=== PATIENT | male | born 1975 | race Caucasian/White ===

== ENCOUNTER 2016-07-08 04:15 | Inpatient (IN) | payer OTHER ==
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
--- NOTE | ~2016-07-08 | CR150 ---
[facility] A Service of [facility] RADIOLOGY TEXT RESULTS PATIENT: KENTON OCHOA LOCATION: [place] [id number] : [birth year] UNIT #: [id number] AGE: [address]: Connie Swann MD SEX: M ORDER DR: [id number] [facility] [address] [facility]. [place], [place] [address] [id number] I MR#: [id number] Acc #: [id number] NAME: KENTON OCHOA : 1975 SEX: M STUDY DATE/TIME: 07/08/2016 21:03 UNIT: [facility] ROOM: [facility] STUDY DESCRIPTION: CR Hip Min 2 Views Lt Attending Physician: Connie Swann M.D. Ordering Physician: Connie Swann M.D. Primary Care Physician: No Primary Care Physician MEDICAL IMAGING REPORT This report is preliminary unless electronic signature is present EXAM Left hip, 07/08/2016 HISTORY A 41-year-old male in the ED complaining of 2-year history of left hip pain. He states he recently injured his left hip. He was seen in the ED at [facility] yesterday after a reported seizure and fall. TECHNIQUE AP radiographs of the pelvis and hips with the lateral left hip image. FINDINGS The examination is negative. No acute or chronic fracture deformity, dislocation, arthropathy or other osseous abnormality. IMPRESSION Negative left hip. Dictated by... Kj Falcon M.D. THIS IS AN ELECTRONICALLY VERIFIED REPORT Kj Falcon M.D. at 07/09/2016 9:53 PM MARCIN/karen TD: 07/09/2016 06:23 JOB #: [id number] MEDICAL IMAGING REPORT Page 1 of 1 COPY
--- NOTE | ~2016-07-08 | DS ---
Unit #: [id number] #: [id number] Patient: KENTON OCHOA [id number] [address] [address] [id number] I MR#: [id number] NAME: KENTON OCHOA ROOM: 569 Age: 41 Sex: M Admission Date: 07/08/2016 : 1975 Discharge Date: 07/11/2016 Attending Physician: Connie Swann M.D. DISCHARGE SUMMARY ADDENDUM The patient is evaluated for inpatient alcohol withdrawal per [facility], but he is refusing. Given he is clinically stable, I am going to discharge home on a tapering dose of Librium 25 mg 2 tablets p.o. t.i.d. for 2 days, then 2 tablets p.o. b.i.d. for 2 days, then one tablet p.o. b.i.d. for 2 days, and one tablet daily for 2 days. Dictated by... Daryl Paez/brandy TD: 07/11/2016 08:21 JOB #: [id number] DISCHARGE SUMMARY Page 1 of 1 X Connie Swann MD X DISCHARGE SUMMARY
--- NOTE | ~2016-07-08 | DS ---
Unit #: [id number] #: [id number] Patient: KENTON STALLINGS [id number] [address] [place], [place] [address] [id number] I MR#: [id number] NAME: KENTON STALLINGS ROOM: 569 Age: 41 Sex: M Admission Date: 07/08/2016 : 1975 Discharge Date: Attending Physician: Connie Swann M.D. DISCHARGE SUMMARY PRIMARY CARE PHYSICIAN None. PRINCIPAL DIAGNOSES 1. Seizure, question alcohol withdrawal versus nonepileptic. 2. Acute delirium tremens. 3. Chronic alcohol abuse. 4. Polysubstance abuse including tobacco, alcohol, and amphetamines. 5. Alcohol-induced thrombocytopenia, improving. 6. Hypomagnesemia. 7. Hypokalemia. 8. Hepatitis C. 9. Left iliotibial band syndrome. 10. Tobaccoism. PROCEDURES X-ray of the left hip on 07/08/2016, which was normal. CLINICAL HISTORY AND HOSPITAL COURSE Mr. Stallings is a 41-year-old male who presents to our ER with seizure. The patient recently left a facility reportedly against medical advice in [place] after presenting for alcohol withdrawal. [facility], but unfortunately developed a seizure en route and was admitted to our facility. The patient was initially admitted to the ICU and he had significant symptoms of withdrawal even with an alcohol level in the 300s. He was started on scheduled Librium and high-dose Ativan protocol, and subsequently Librium was maxed out at 300 mg per day. This seemed to help with symptoms and he has required minimal amounts of Ativan since that time. His tremors have resolved. He has had minimal tachycardia and I am going to begin tapering of Librium; however, he is still on a significantly high dose and I think he would benefit [facility]. In regard to the patient's seizure, Dr. Mccord was consulted. He was loaded with Keppra in the emergency department. He has been maintained on Keppra since that time and he has had no seizure activity. He did undergo an EEG, which was normal. I believe this is not the patient's first seizure and this may be alcohol related versus pseudoseizure versus other and the plan is to keep on Keppra for now. He can complete an outpatient evaluation including an MRI. Unit #: [id number] #: [id number] Patient: KENTON STALLINGS Today, the patient is clinically stable and he is agreeable to [facility] DISCHARGE CONDITION Stable. DISCHARGE STATUS Discharge to [facility] if bed available. DISCHARGE MEDICATIONS Tegretol 200 mg b.i.d.; Neurontin 800 mg every 6 hours; Keppra 500 mg b.i.d.; trazodone 50 mg at bedtime p.r.n. for sleep; Librium 50 mg p.o. q.6 hours; Ativan per [facility] protocol; Norvasc 5 mg daily; Catapres 0.1 mg b.i.d.; folic acid 1 mg daily; thiamine 100 mg daily. DISCHARGE INSTRUCTIONS The patient is instructed to follow a regular diet. He can increase his activity as tolerated. He should refrain from any further tobacco use, but states he will not do so. FOLLOWUP The patient can follow up per recommendation of our [facility]. He should follow up with a neurologist of his choice as an outpatient. Dictated by... Connie Swann M.D. ROZINA/brandy TD: 07/11/2016 04:44 JOB #: [id number] DISCHARGE SUMMARY Page 1 of 1 X Connie Swann MD X DISCHARGE SUMMARY
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
--- NOTE | ~2016-07-08 | EE ---
Unit #: [id number] #: [id number] Patient: KENTON OCHOA [id number] [address] [address] [id number] I MR#: [id number] NAME: KENTON OCHOA : 1975 SEX: M STUDY DATE/TIME: 07/08/2016 UNIT: [facility] ROOM: [facility] STUDY DESCRIPTION: Attending Physician: Connie Swann M.D. Referring Physician: Sadaf Rai M.D. Primary Care Physician: No Primary Care Physician NEURODIAGNOSTICS REPORT EXAM EEG. REASON FOR THE STUDY Multiple seizures. EEG DESCRIPTION This is an inpatient, digitally recorded, multimontage adult EEG with leads placed according to the International 10/20 System. Hyperventilation and photic stimulation were attempted. With the patient fully aroused, there is 10 to 11 Hz posterior background with significant beta artifact. The patient did become drowsy and later on stage 2 sleep was seen. Hyperventilation was attempted but I did not see any significant changes. Photic stimulation was attempted in an intermittent step-pham pattern up to the flash frequency of 30 Hz but I did not see any driving, asymmetry, or paroxysmal activity. IMPRESSION This seemed to be a normal EEG with some beta artifact which is likely medication effect, nothing suggesting seizure or status or interictal discharges, so clinical correlation is recommended. Dictated by... Daryl Mcnamara/helio TD: 07/09/2016 10:22 JOB #: [id number] Unit #: [id number] #: [id number] Patient: KENTON OCHOA NEURODIAGNOSTICS REPORT Page 1 of 1 X Valentina Mccord MD NEURODIAGNOSTICS REPORT
--- NOTE | ~2016-07-08 | XA166 ---
[facility] A Service of [facility] RADIOLOGY TEXT RESULTS PATIENT: KENTON OCHOA LOCATION: [facility] 569-01 : [birth year] UNIT #: [id number] AGE: [address]: Connie Swann MD SEX: M ORDER DR: [id number] [facility] [address] [facility]. [place], [place] [address] [id number] I MR#: [id number] Acc #: [id number] NAME: KENTON OCHOA : 1975 SEX: M STUDY DATE/TIME: 07/09/2016 10:29 UNIT: [facility] ROOM: [facility] STUDY DESCRIPTION: XA PICC Line Placement WO Port Attending Physician: Connie Swann M.D. Ordering Physician: Sadaf Rai M.D. Primary Care Physician: Primary Care Physician No MEDICAL IMAGING REPORT This report is preliminary unless electronic signature is present EXAM PICC line insertion 07/09/2016 HISTORY IV access needed. PRE-PROCEDURE The procedure was explained to the patient and/or patient sales representative health insurance including risks, benefits, potential complications and potential for alternative forms of treatment. Informed consent was obtained, and prior to initiating the procedure a formal timeout procedure was performed. PROCEDURE Using full standard sterile barrier technique, including caps, gowns, gloves, masks, as well as sterile skin preparation and standard sterile draping, the left arm was prepped and draped in the usual fashion, and real-time sterile ultrasound guidance was used to localize an arm vein and to confirm vessel patency. A hard copy ultrasound image was recorded. After local anesthesia with 1% Xylocaine, the vein was punctured using real-time sterile ultrasound guidance, and an 0.018 guidewire was advanced into the superior vena cava, using fluoroscopic guidance. A 5 Icelandic dual-lumen PICC was then measured and deployed with the tip positioned in the superior vena cava. The position of the line was documented with a radiographic image. The line was secured in place with an adhesive dressing and an antibiotic patch was applied. Total fluoro time was 0.3 minutes. IMPRESSION Successful placement of a 5 Icelandic dual lumen PowerPICC via the left arm under ultrasound and fluoroscopic guidance. The tip of the PICC is in good position in the superior vena cava. [facility]. [facility] A Service of [facility] RADIOLOGY TEXT RESULTS PATIENT: KENTON OCHOA LOCATION: [facility] 569-01 : [birth year] UNIT #: [id number] AGE: [address]: Connie Swann MD SEX: M ORDER DR: Dictated by... Chano Nur M.D. THIS IS AN ELECTRONICALLY VERIFIED REPORT Chano Nur M.D. at 07/13/2016 2:34 PM LIBBY/wood TD: 07/13/2016 13:12 JOB #: [id number] MEDICAL IMAGING REPORT Page 1 of 1 COPY
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
--- NOTE | ~2016-07-08 | CO ---
Unit #: [id number] #: [id number] Patient: KENTON STALLINGS [id number] [address] [place], [place] [address] [id number] MR#: [id number] NAME: KENTON STALLINGS ROOM: [facility] Age: 41 Sex: M Admission Date: 07/08/2016 : 1975 Attending Physician: Connie Swann M.D. Primary Care Physician: Primary Care Physician No CONSULTATION REPORT HISTORY OF PRESENT ILLNESS Mr. Stallings is a 41-year-old white male with a history of alcohol abuse, hep C, hypertension, and recent onset seizure, who has recently been hospitalized in [place] for seizures and was coming here for alcohol detox at [facility], but had a seizure, was taking to [facility] and transferred to [facility]. Apparently, he had a head injury on 06/19/2016. He had been experiencing spells. We would stare off in space according to his girlfriend who is a nurse. He had some generalized aching about 5 days ago and was seen in [facility]. He was treated for alcohol withdrawal with Ativan and received 2 [place] Light every 6 hours. He was placed on Keppra. EEG was apparently pending. As noted, he was discharge and was coming to [facility] and had a generalized shaking spell and was diverted to [facility] and then transferred here for admission to the ICU. In our ICU, he had 2 episodes of generalized shaking, he was given 2 mg of Ativan and had a third episode which consisted of about 30 seconds of generalized shaking and was mildly confused afterwards, he did not bite his tongue. He had a head CT, which was unremarkable. His chest x-ray showed no infiltrate, mass, or congestion. His chemistries here creatinine was 0.4, potassium 3.4, sodium 141, AST and ALT 84 and 61. Cardiac enzymes were negative. Coags were normal. White count was 5100, hematocrit was 45.1, platelet count was 101,000. PAST MEDICAL HISTORY Alcohol abuse, arthritis, trigeminal neuralgia, hepatitis C, girlfriend believes he underwent a TIPS procedure some years ago, history of depression, right wrist surgery for an infection after amphetamines were injected, history of left leg sciatica. ALLERGIES Possibly to lidocaine. HOME MEDICATIONS Tegretol, Norvasc, clonidine, Celexa, Neurontin, trazodone, and Phenergan. FAMILY HISTORY Negative for seizures. SOCIAL HISTORY Lives with girlfriend and smokes 3 packs of cigarettes a day. Drinks 30 bud Lights a day plus 1 to 2 pints of liquor. Not using illicit drugs. REVIEW OF SYSTEMS Unit #: [id number] #: [id number] Patient: KENTON STALLINGS CONSTITUTIONAL: No fevers or chills. HEENT: No rhinorrhea or nasal congestion. PULMONARY: No shortness of breath. Has had aspiration pneumonia in the past. GI: As noted. : No hematuria or dysuria. ENDOCRINE: No polyuria or polydipsia. HEMATOLOGIC: No easy bruising or bleeding. SKIN: No rash. PHYSICAL EXAMINATION GENERAL: White male, in no distress, awake, alert, and oriented x3. VITAL SIGNS: Blood pressure is 131/88, pulse is 108, respiratory rate 17, afebrile. HEENT: Normocephalic and atraumatic. Pupils are equal, round, and reactive. Sclerae nonicteric. Nasal passages patent. Posterior pharynx clear. Mucous membranes moist. NECK: Supple. Trachea midline. No cervical or supraclavicular lymphadenopathy. LUNGS: Clear to auscultation and percussion. CARDIAC: Regular rate and rhythm. Could not appreciate murmur, rub, or gallop. ABDOMEN: Nontender. Bowel sounds present. No hepatosplenomegaly. EXTREMITIES: Without clubbing, cyanosis, or edema. NEUROLOGIC: Awake and oriented x3. Cranial nerves grossly intact. Muscle strength symmetric. Affect calm. No distress. DIAGNOSTIC STUDIES LABORATORY RESULTS: Reviewed, as noted. IMPRESSION 1. New onset seizures. 2. Alcohol withdrawal. 3. Alcohol abuse with some withdrawal. 4. History of hepatitis C. 5. Trigeminal neuralgia. 6. Arthritis. [facility] protocol. Neurology to see for seizures. Thiamine banana bag. Further recommendations pending this. Dictated by... Ronan Young M.D. DEEPA/brandy TD: 07/09/2016 02:29 JOB #: [id number] Unit #: [id number] #: [id number] Patient: JANET STALLINGSANNALISE ODELL CONSULTATION REPORT Page 1 of 1 X Ronan Young MD CONSULTATION REPORT
[2016-07-08 08:12] LABS: BASOPHIL% 0.3 % (0-2.5); EOSINOPHIL# 0.2 X10e3 (0-0.7); EOSINOPHIL% 3.8 % (0.0-7.0); HEMATOCRIT 45.1 % (38.0-50.0); HEMOGLOBIN 14.7 gm/dL (13.0-16.0); LYMPHOCYTE# 1.8 X10e3 (1.0-3.5); LYMPHOCYTE% 34.5 % (17.0-45.0); MEAN CELL VOLUME 92.3 FL (83-96); MEAN CORPUSCULAR HEMOGLOBIN 30.2 PG (28-34); MEAN CORPUSCULAR HGB CONC 32.7 g/dL (30-36); MEAN PLATELET VOLUME 8.8 FL (6.5-11.5); MONOCYTE# 0.4 X10e3 (0-1.0); MONOCYTE% 8.4 % (3.0-12.0); NEUTROPHIL# 2.7 X10e3 (1.5-7.1); PLATELET COUNT 101 X10e3 (140-420); RED BLOOD COUNT 4.89 X10e (3.90-5.60); RED CELL DISTRIBUTION WIDTH 14.4 % (11.0-15.5); WHITE BLOOD COUNT 5.1 X10e3 (4.0-10.5)
[2016-07-08 08:13] LABS: DIFF IND NO
[2016-07-08 08:19] LABS: PROTHROMBIN TIME (PATIENT) 10.1 SECONDS (9.6-11.5)
[2016-07-08 08:51] LABS: ALBUMIN SERUM 3.9 g/dL (3.5-5.0); ALKALINE PHOSPHATASE 72 U/L (32-92); ALT (SGPT) 61 U/L (10-40); AST (SGOT) 84 U/L (10-42); BILIRUBIN,TOTAL 0.6 mg/dL (0.2-2.0); BLOOD UREA NITROGEN 6 mg/dL (9-23); CALCIUM SERUM 8.5 mg/dL (8.4-10.2); CARBON DIOXIDE 28 mmol/L (22-31); CHLORIDE 103 mmol/L (100-111); CREATININE SERUM 0.4 mg/dL (0.6-1.4); GLOM FILT RATE Estimated ABOVE60 mL/min (>60); GLUCOSE FASTING 81 mg/dL (70-110); POTASSIUM 3.4 mmol/L (3.5-5.1); PROTEIN TOTAL SERUM 6.5 g/dL (6.0-8.3); SODIUM 141 mmol/L (135-145)
[2016-07-09 05:35] LABS: HEMATOCRIT 46.7 % (38.0-50.0); HEMOGLOBIN 15.4 gm/dL (13.0-16.0); MEAN CELL VOLUME 91.6 FL (83-96); MEAN CORPUSCULAR HEMOGLOBIN 30.2 PG (28-34); MEAN PLATELET VOLUME 8.8 FL (6.5-11.5); RED BLOOD COUNT 5.1 X10e (3.90-5.60); RED CELL DISTRIBUTION WIDTH 14.6 % (11.0-15.5)
[2016-07-09 06:23] LABS: BLOOD UREA NITROGEN 7 mg/dL (9-23); CALCIUM SERUM 9.5 mg/dL (8.4-10.2); CARBON DIOXIDE 26 mmol/L (22-31); CHLORIDE 104 mmol/L (100-111); CREATININE SERUM 0.7 mg/dL (0.6-1.4); GLOM FILT RATE Estimated ABOVE60 mL/min (>60); GLUCOSE FASTING 140 mg/dL (70-110); MAGNESIUM 1.4 mg/dL (1.6-3.0); PHOSPHOROUS 3.3 mg/dL (2.5-4.6); POTASSIUM 3.4 mmol/L (3.5-5.1); SODIUM 140 mmol/L (135-145)
[2016-07-10 09:54] LABS: BUN/CREATININE RATIO 8.57; CALCIUM SERUM 9.1 mg/dL (8.4-10.2); CREATININE SERUM 0.7 mg/dL (0.6-1.4); GLOM FILT RATE Estimated 118.1 mL/min (>60); MAGNESIUM 1.5 mg/dL (1.6-3.0); POTASSIUM 3.8 mmol/L (3.5-5.1)
[2016-07-10] MEDS ORDERED: LIBRIUM25 M1 PO (17:20)
[2016-07-10] MEDS ORDERED: TEGRETOL PO (17:25)
[2016-07-10] MEDS ORDERED: KEPPRA500 M2 PO (17:26)
[2016-07-10] MEDS ORDERED: DESYREL50 MG PO (17:26)
[2016-07-10] MEDS ORDERED: NEURONTIN800 MG PO (17:26)
[2016-07-10] MEDS ORDERED: CLONIDINE PO (17:27)
[2016-07-10] MEDS ORDERED: NORVASC PO (17:27)
[2016-07-10] MEDS ORDERED: FOLIC ACID1 MG PO (17:28)
[2016-07-10] MEDS ORDERED: THIAMINE HCL100 M2 PO (17:28)
[2016-07-11 06:49] LABS: MAGNESIUM 1.6 mg/dL (1.6-3.0); POTASSIUM 3.7 mmol/L (3.5-5.1)
== END 2016-07-11 19:34 | disposition left against medical advice (07) | DRG 101 ==
LOC: CICCU2 04:15 → C5C 07-09 23:20
PROVIDERS: Internal Medicine
PROC: 02HV33Z Insertion of Infusion Device into Superior Vena Cava, Percutaneous Approach (ICD-10-PCS; principal; 2016-07-09)
PROC: B548ZZA Ultrasonography of Superior Vena Cava, Guidance (ICD-10-PCS; 2016-07-09)
DX: R56.9 Unspecified convulsions (principal); F10.231 Alcohol dependence with withdrawal delirium; D69.59 Other secondary thrombocytopenia; E83.42 Hypomagnesemia; F15.10 Other stimulant abuse, uncomplicated; F17.210 Nicotine dependence, cigarettes, uncomplicated; E87.6 Hypokalemia; B19.20 Unspecified viral hepatitis C without hepatic coma; M76.32 Iliotibial band syndrome, left leg; F32.9 Major depressive disorder, single episode, unspecified; G50.0 Trigeminal neuralgia; I10 Essential (primary) hypertension; M19.90 Unspecified osteoarthritis, unspecified site
CPT/HCPCS: 73502; 76937; 77001; 80048; 80053; 83735; 84100; 84132; 84484; 85025; 85027; 85610; 85730; 95816; C1751; J1953; J2060; J3475